=== PATIENT | female | born 2000 | race Two or more races ===

== ENCOUNTER 2019-09-03 16:34 | Emergency (ER) | payer OTHER ==
[~2019-09-03] VITALS: Ht 157.5 cm; Wt 81.5 kg
[2019-09-03 16:52] VITALS: BP 118/69
--- NOTE | 2019-09-03 17:20 | NUR ---
PT PROVIDED URINE CUP, IN BR FOR FIVE MINUTES/STATES "CAN'T GO". PT DRINKING WATER. CALL LIGHT WITHIN REACH.
--- NOTE | 2019-09-03 17:57 | NUR ---
URINE COLLECTED/SENT TO LAB.
[2019-09-03 18:07] LABS: HCG UR SG 1.034 (1.003-1.030)
== END 2019-09-03 18:45 | disposition home or self-care (01) ==
LOC: ED 18:30
DX: O26.899 Other specified pregnancy related conditions, unspecified trimester (principal)
CPT/HCPCS: 81025; 99282

== ENCOUNTER 2020-02-22 00:31 | Inpatient (IN) | payer OTHER ==
[~2020-02-22] VITALS: Ht 157.5 cm; Wt 105.4 kg
[2020-02-22] MEDS: LACTATED RINGERS 1,000 ML IV SCH ×2 (02:00→06:04)
[2020-02-22] MEDS ORDERED: D5%-LACTATED RINGERS 1,000 ML IV SCH (05:32)
[2020-02-22] MEDS ORDERED: OXYTOCIN 30U/ 0.9% NaCL 500ML 500 ML IV PRN (05:32)
[2020-02-22] MEDS ORDERED: OXYTOCIN 30U/ 0.9% NaCL 500ML 500 ML IV ONE (05:32)
[2020-02-22 05:41] VITALS: BP 134/77
[2020-02-22] MEDS ORDERED: VALA10007 PO (05:53)
[2020-02-22] MEDS ORDERED: TERBUTALINE 1 MG/ML, 1ML SQ PRN (06:00)
[2020-02-22] MEDS ORDERED: CALCIUM CARBONATE 500 MG TAB.CHEW PO PRN (06:00)
[2020-02-22] MEDS ORDERED: METOCLOPRAMIDE 5 MG/ML, 2ML IVPush PRN (06:00)
[2020-02-22] MEDS ORDERED: ONDANSETRON 2MG/ML, 2ML IVPush PRN (06:00)
[2020-02-22] MEDS ORDERED: TERBUTALINE 1 MG/ML, 1ML IVPush PRN (06:00)
[2020-02-22] MEDS ORDERED: FENTANYL PF 100 MCG/2ML IVPush PRN (06:00)
[2020-02-22] MEDS ORDERED: FENTANYL PF 100 MCG/2ML IV PRN (06:00)
[2020-02-22] MEDS ORDERED: MISOPROSTOL 25 MCG TABLET VG PRN (06:00)
[2020-02-22] MEDS ORDERED: LIDOCAINE 1%, 20ML ONE (06:12)
[2020-02-22] MEDS ORDERED: MISOPROSTOL 25 MCG TABLET ONE (06:12)
[2020-02-22] MEDS ORDERED: MISOPROSTOL 200 MCG TABLET ONE (06:13)
[2020-02-22] MEDS ORDERED: OXYTOCIN 30U/ 0.9% NaCL 500ML 500 ML ONE (06:13)
[2020-02-22] MEDS ORDERED: NEWBORN KIT ONE (06:34)
[2020-02-22 06:35] LABS: MEAN CORPUSCULAR HEMOGLOBIN 26.2 pg (27.0-34.8); MEAN CORPUSCULAR HGB CONC 32.8 g/dL (32.4-35.8); MEAN PLATELET VOLUME 11.8 fL (7.4-10.4); PLATELET COUNT 178 x10^3/uL (130-400); RED BLOOD COUNT 4.19 x10^6/uL (3.82-5.3); RED CELL DISTRIBUTION WIDTH 15.2 % (9.6-15.2)
[2020-02-22 07:26] LABS: MD MORPH REVIEW ONLY
[2020-02-22 07:27] LABS: BASOPHILS # (AUTO) 0.05 x10^3/uL (0-0.1); BASOPHILS % (AUTO) 0 % (0-1); EOSINOPHILS # (AUTO) 0.15 x10^3/uL (0-0.4); EOSINOPHILS % (AUTO) 1 % (1-7); LYMPHOCYTES # (AUTO) 2.09 x10^3/uL (1-3.4); LYMPHOCYTES % (AUTO) 15 % (22-44); MONOCYTES # (AUTO) 1.03 x10^3/uL (0.2-0.8); MONOCYTES % (AUTO) 7 % (2-9); NEUTROPHILS # (AUTO) 11.15 x10^3/uL (1.8-6.8); NEUTROPHILS % (AUTO) 77 % (42-75)
[2020-02-22 07:31] LABS: <PLATELET ESTIMATE> ADEQUATE; LARGE PLATELETS 2+; MICROCYTOSIS 2+
[2020-02-23] MEDS ORDERED: FENTANYL PF 100 MCG/2ML ONE (05:37)
[2020-02-23] MEDS ORDERED: BUPIVACAINE 0.25% ONE (07:42)
[2020-02-23] MEDS ORDERED: FENTANYL/BUPIV./NS/PF 250 ML EPIDCONT ONE (07:49)
[2020-02-23] MEDS ORDERED: LACTATED RINGERS 1,000 ML IV SCH (08:21)
[2020-02-23] MEDS ORDERED: FENTANYL/BUPIV./NS/PF 250 ML EPIDCONT SCH (08:21)
[2020-02-23] MEDS ORDERED: LACTATED RINGERS 1,000 ML IVBOLUS PRN (08:30)
[2020-02-23] MEDS ORDERED: NALOXONE 0.4 MG/ML, 1ML IVPush PRN (08:30)
[2020-02-23] MEDS ORDERED: ONDANSETRON 2MG/ML, 2ML IVPush PRN (08:30)
[2020-02-23] MEDS ORDERED: EPHEDRINE 50 MG/ML, 1ML IVPush PRN (08:30)
[2020-02-23] MEDS ORDERED: DIPHENHYDRAMINE 50 MG/ML, 1ML IVPush PRN (08:30)
[2020-02-23 08:50] VITALS: BP 132/70
[2020-02-23] MEDS: LACTATED RINGERS 1,000 ML IV SCH (08:55)
[2020-02-23] MEDS: OXYTOCIN 30U/ 0.9% NaCL 500ML 500 ML IV SCH ×2 (12:53→23:05)
[2020-02-23] MEDS ORDERED: OXYTOCIN 30U/ 0.9% NaCL 500ML 500 ML ONE (13:21)
[2020-02-23] MEDS ORDERED: SIMETHICONE 80 MG CHEW TAB PO PRN (13:30)
[2020-02-23] MEDS ORDERED: DOCUSATE 100 MG CAPSULE PO PRN (13:30)
[2020-02-23] MEDS ORDERED: HYDROcodone/APAP 5/325 TABLET PO PRN (13:30)
[2020-02-23] MEDS ORDERED: ACETAMINOPHEN 325 MG TABLET PO PRN (13:30)
[2020-02-23] MEDS ORDERED: DIPH,PERTUSS(ACELL),TET VAC/PF NC IM-VACC PRN (13:30)
[2020-02-23 15:10] VITALS: BP 123/65
[2020-02-23] MEDS: IBUPROFEN 600 MG TABLET PO PRN ×2 (15:20→23:59)
[2020-02-23 16:00] VITALS: BP 129/83
[2020-02-23] MEDS ORDERED: MISOPROSTOL 200 MCG TABLET PR ONE (18:00)
[2020-02-23] MEDS: HYDROcodone/APAP 5/325 TABLET PO PRN ×2 (19:40→23:59)
[2020-02-23 20:00] VITALS: BP 119/77
[2020-02-23 21:06] LABS: MEAN CORPUSCULAR HEMOGLOBIN 26.4 pg (27.0-34.8); MEAN CORPUSCULAR HGB CONC 33.1 g/dL (32.4-35.8); MEAN CORPUSCULAR VOLUME 79.6 fL (80-100); MEAN PLATELET VOLUME 11.8 fL (7.4-10.4); PLATELET COUNT 175 x10^3/uL (130-400); RED BLOOD COUNT 3.92 x10^6/uL (3.82-5.3); RED CELL DISTRIBUTION WIDTH 15.2 % (9.6-15.2)
[2020-02-23 21:31] LABS: BASOPHILS # (AUTO) 0.02 x10^3/uL (0-0.1); BASOPHILS % (AUTO) 0 % (0-1); EOSINOPHILS # (AUTO) 0.01 x10^3/uL (0-0.4); EOSINOPHILS % (AUTO) 0 % (1-7); LYMPHOCYTES # (AUTO) 1.79 x10^3/uL (1-3.4); LYMPHOCYTES % (AUTO) 10 % (22-44); MD SCAN; MONOCYTES # (AUTO) 1.47 x10^3/uL (0.2-0.8); MONOCYTES % (AUTO) 8 % (2-9); NEUTROPHILS # (AUTO) 15.49 x10^3/uL (1.8-6.8); NEUTROPHILS % (AUTO) 83 % (42-75)
[2020-02-24 00:03] VITALS: BP 122/78
[2020-02-24 04:11] VITALS: BP 115/69
[2020-02-24] MEDS: IBUPROFEN 600 MG TABLET PO PRN ×2 (08:18→18:00)
[2020-02-24] MEDS: HYDROcodone/APAP 5/325 TABLET PO PRN ×2 (08:19→18:01)
[2020-02-24 08:20] VITALS: BP 110/69
[2020-02-24] MEDS ORDERED: PRENATAL VIT/IRON/FA 1 EACH TABLET PO SCH (09:00)
[2020-02-24] MEDS: OXYTOCIN 30U/ 0.9% NaCL 500ML 500 ML IV SCH ×2 (09:05→19:05)
[2020-02-24 19:34] VITALS: BP 106/57
[2020-02-24] MEDS ORDERED: IBUP-1222 PO ×2 (21:18→21:23)
[2020-02-24] MEDS ORDERED: MEASLES,MUMPS&RUBELLA VACC/PF 0.5 ML SQ-VACC ONE (22:00)
== END 2020-02-24 22:30 | disposition home or self-care (01) | DRG 807 ==
LOC: L&D 05:24 → LDIP 05:30 → 2NW 02-23 14:50
PROVIDERS: ADMIT Obstetrics & Gynecology; ATTEND Obstetrics & Gynecology
PROC: 3E033VJ Introduction of Other Hormone into Peripheral Vein, Percutaneous Approach (ICD-10-PCS; 2020-02-22)
PROC: 3E0P7VZ Introduction of Hormone into Female Reproductive, Via Natural or Artificial Opening (ICD-10-PCS; 2020-02-22)
PROC: 10E0XZZ Delivery of Products of Conception, External Approach (ICD-10-PCS; principal; 2020-02-23)
PROC: 0KQM0ZZ Repair Perineum Muscle, Open Approach (ICD-10-PCS; 2020-02-23)
PROC: 3E0R3BZ Introduction of Anesthetic Agent into Spinal Canal, Percutaneous Approach (ICD-10-PCS; 2020-02-23)
PROC: 00HU33Z Insertion of Infusion Device into Spinal Canal, Percutaneous Approach (ICD-10-PCS; 2020-02-23)
DX: O70.1 Second degree perineal laceration during delivery (principal); Z37.0 Single live birth; Z3A.39 39 weeks gestation of pregnancy
CPT/HCPCS: 36415; 85025; 86592; 86850; 86900; G0378; J3010; J2590; J7120